=== PATIENT | male | born 1960 | race Caucasian/White ===

== ENCOUNTER → 2019-10-18 | Outpatient (CLI) | payer OTHER ==
[~2019-10-18] VITALS: Ht 180.3 cm; Wt 108.9 kg
[~2019-10-18] MED LIST: LISINOPRIL5 MG PO; MULTIVITAMINS1 EAC7 PO; PROTONIX40 M1 PO
--- NOTE | 2019-10-18 15:08 | P ---
[facility] [place] [address] PROCEDURE REPORT Name: JEREMÍAS BARRETO Room #: REG [facility]#: [id number] Admission: 10/18/19 Attend Phys: Scott Best MD Discharge: Date of : 64 Report #: [id number] THIS REPORT FOR: cc: Robert Fishman MD, Bradley MD Thesing,Scott Muniz MD ~ CC: Robert Best OUTPATIENT COLONOSCOPY REPORT BRIEF HISTORY: The patient is a 59-year-old male for average risk screening colonoscopy. PREOPERATIVE DIAGNOSIS: Average risk screening colonoscopy. POSTOPERATIVE DIAGNOSES: 1. Pclveuva-cq-bpicup diverticulosis coli, primarily left colon. 2. Small internal hemorrhoids. MEDICATIONS: Deep sedation with propofol per anesthesia. SPECIMEN: None. ESTIMATED BLOOD LOSS: None. PROCEDURE: Colonoscopy to cecum and terminal ileum. FINDINGS: Prior to propofol sedation, procedure of colonoscopy discussed with the patient as well as potential risks and its complications. He indicates he understands and desires to proceed. DESCRIPTION OF PROCEDURE: With the patient in left lateral decubitus position, digital examination was completed, which revealed no abnormalities. Subsequently, the Olympus video colonoscope was introduced into the rectum, advanced under direct vision to the cecum. Done with minimal difficulty. The cecum was identified by the ileocecal valve and the appendiceal orifice. I was able to visualize the distal segment of the terminal ileum, which was inspected and noted to be unremarkable. At that point, the scope was slowly withdrawn and careful circumferential views obtained. Upon slow withdrawal of the scope, the prep was excellent. The mucosa was within normal limits, normal vascular pattern, normal light reflex. No neoplastic or inflammatory changes were seen. An occasional diverticulum was seen in the proximal colon. There was no endoscopic evidence of diverticulitis. As the scope was withdrawn, he was found to have moderately severe diverticular disease in the sigmoid colon without endoscopic evidence of diverticulitis. Scope was withdrawn in the rectum, [address] [address] PROCEDURE REPORT Name: JEREMÍAS BARRETO Sayda Room #: REG [facility]#: [id number] Admission: 10/18/19 Attend Phys: Scott Best MD Discharge: Date of : 64 Report #: [id number] abnormalities were seen. Upon retroflexion, small hemorrhoids were seen. Scope was withdrawn. The patient tolerated the procedure well. CONDITION OF THE PATIENT UPON DISCHARGE: Following procedure, the patient drowsy, aroused, conversant and will be discharged home when fully ambulatory. INSTRUCTIONS TO THE PATIENT AND FAMILY AT THE TIME OF DISCHARGE: No neoplastic lesions were seen. He does have diverticular disease. At this point in time, I suggest to return for average risk screening colonoscopy in 10 years. Withdrawal time from the cecum was 10 minutes 8 seconds. <ELECTRONICALLY SIGNED> By: Scott Best MD 10/18/19 1508 [id number] Scott Best MD /chantelle
--- NOTE | 2019-10-19 14:59 | P ---
[facility] [place] [address] PROCEDURE REPORT Name: JEREMÍAS BARRETO Room #: REG [facility]#: [id number] Admission: 10/18/19 Attend Phys: Scott Best MD Discharge: Date of : 64 Report #: [id number] THIS REPORT FOR: cc: Robert Fishman MD, Bradley MD Thesing,Scott Muniz MD ~ CC: Robert Best OUTPATIENT UPPER ENDOSCOPY REPORT BRIEF HISTORY: The patient is a 59-year-old male with a history of Oconnor's esophagus with previous radiofrequency ablation. He was treated more than 5 years ago. He presents for surveillance upper endoscopy. PREOPERATIVE DIAGNOSIS: History of Oconnor's esophagus, status post radiofrequency ablation. POSTOPERATIVE DIAGNOSES: 1. Diffuse gastritis, previously noted. 2. A 3-4 cm sliding-type hiatus hernia. 3. Surgical changes consistent with Klever fundoplication, partially undone. 4. Gastric polyps. MEDICATIONS: Deep sedation with propofol per anesthesia. SPECIMENS: 1. Biopsy of gastric polyp, within the hiatus hernia in the cardia of the stomach. 2. Biopsy of GE junction. ESTIMATED BLOOD LOSS: 3 mL. PROCEDURE: EGD with biopsy. FINDINGS: Prior to propofol sedation, procedure of upper endoscopy was discussed with the patient as well as potential risks and its complications. He indicates he understands and desires to proceed. DESCRIPTION OF PROCEDURE: With the patient in left lateral decubitus position, the Olympus video endoscope was inserted in the cervical esophagus under direct vision without difficulty. Examination of this organ through its entire style revealed normal esophageal mucosa down the squamocolumnar junction. This area was examined with white light and narrow banded imaging. The mucosa was completely flat. No strictures or masses were seen. No raised lesions were seen. The squamocolumnar junction was in appropriate position at the top of [facility] [address] [place] [address] PROCEDURE REPORT Name: MARY LOU,JEREMÍAS J Room #: REG [facility]#: [id number] Admission: 10/18/19 Attend Phys: Scott Bset MD Discharge: Date of : 64 Report #: [id number] gastric folds. Multiple biopsies were obtained. The scope was advanced. He had a 3-4 cm sliding-type hiatus hernia. Upon retroflexion, a diminutive polyp could be seen that was within about 2 cm of the squamocolumnar junction, was essentially removed with biopsy forceps. It had a benign appearance. No other abnormalities were seen in the hiatus hernia. The scope was advanced fully into the stomach, which was examined on end view as well as retroflexed views. There were a few scattered gastric polyps, which have been previously noted. They had a smooth benign appearance in typical appearance. In addition, there was a diffuse gastritis with erythema in the antrum of the stomach, which was then previously noted as well. No ulcers or mass lesions were seen. Upon retroflexion, the hiatus hernia was seen. Also, there was evidence of Klever fundoplication, but endoscopically it appears to be involving only one half of the circumference and ____. Pylorus, duodenal bulb, and postbulbar duodenal sweep were inspected and noted to be unremarkable. At that point, the scope was slowly withdrawn and careful circumferential views confirmed the above findings. The patient tolerated the procedure well. CONDITION OF THE PATIENT UPON DISCHARGE: Following procedure, the patient drowsy. He will be discharged home when fully ambulatory. INSTRUCTIONS TO THE PATIENT AND FAMILY AT THE TIME OF DISCHARGE: We will followup on biopsies obtained today. If there was no evidence of Oconnor's, we will have him return in 3-5 years. If there is evidence of Oconnor's, we may need to consider additional treatment. He will continue his PPI at least once daily. He will otherwise followup with Dr. Robert Fishman. <ELECTRONICALLY SIGNED> By: Scott Best MD 10/19/19 1459 [id number] 0830 Scott Best MD /nt
--- NOTE | 2019-10-20 14:07 | PATH ---
[facility] [place] [address] PATHOLOGY RPT PROCEDURE Name: DEREK BARRETO Sayda Room #: REG [facility]#: [id number] Admission: 10/18/19 Date of : 64 Discharge: Report #: [id number] Path Case #: [id number] [facility] Accession Number: [id number] . 01 Material submitted: . PART A: hernia - BIOPSY OF POLYP AT HIATAL HERNIA PART B: esophagus - BIOPSY OF G-JUNCTION HX OF BARRETTS S/P RADIOFREQUENCY ABLATION . 01 Clinical history: . Pre-op diagnosis: Screening Post-op diagnosis: Diverticulitis; hemorrhoids . 02 Diagnosis: A. Gastric mucosa, polyp at hiatal hernia, endoscopic biopsy: - Gastric mucosa with mild chronic inflammation. - Negative for intestinal metaplasia or atrophy. - Negative for dysplasia or malignancy. . B. Gastroesophageal mucosa, "G junction of Oconnor's status post radiofrequency ablation", endoscopic biopsy: - Gastric-type mucosa with mild active inflammation. 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 - Negative for Oconnor's mucosa or metaplasia. . (IUV:mml; 10/20/2019) QLM 10/20/2019 1310 Local . 02 Comment: Focal goblet cell change is identified within the squamous metaplastic mucosa; however, there is no intestinal metaplasia identified within the gastric-type mucosa sampled. The provided history of Oconnor's mucosa is noted. There is no definitive Oconnor's mucosa (intestinal metaplasia/specialized columnar epithelium) or dysplasia present within the current biopsy tissue. Please correlate clinically. . (IUV:mml; 10/20/2019) . 02 Electronically signed: . Maggie Hutchins MD, Pathologist NPI- [id number] . 01 Gross description: . A. The specimen is received in formalin, labeled "Derek Barreto, biopsy of polyp at hiatal hernia". Received are three segments of pale graff soft tissue ranging in size from 0.2 to 0.5 cm in maximum dimensions. The specimen is submitted entirely in cassette A1. [address] [address] PATHOLOGY RPT PROCEDURE Name: DEREK BARRETO Room #: REG [facility]#: [id number] Admission: 10/18/19 Date of : 64 Discharge: Report #: [id number] Path Case #: [id number] . B. The specimen is received in formalin, labeled "Derek Barreto, biopsy of G-junction, history of Oconnor's, status post radiofrequency ablation". Received are seven segments of pale graff soft tissue ranging in size from 0.2 to 0.6 cm in maximum dimensions. The specimen is submitted entirely in cassette B1. (CAA; 10/19/2019) QAC/QAC 10/19/2019 1323 Local . 02 Pathologist provided ICD-10: K29.50, K20.9 . 02 CPT . 063511, 782151 Specimen Comment: A courtesy copy of this report has been sent to [phone], [phone] Specimen Comment: [id number] Specimen Comment: Report sent to / DR BARRETT Performed at: [address], [place] [id number] MD Rafael Calero MD Phone: [phone] Performed at: [address] [id number] MD Maggie Hutchins MD Phone: [phone]
== END | disposition home or self-care (01) ==
LOC: GI 06:55
DX: Z12.11 Encounter for screening for malignant neoplasm of colon (principal); K57.30 Diverticulosis of large intestine without perforation or abscess without bleeding; K64.8 Other hemorrhoids; K29.50 Unspecified chronic gastritis without bleeding; K21.0 Gastro-esophageal reflux disease with esophagitis; K31.7 Polyp of stomach and duodenum; K44.9 Diaphragmatic hernia without obstruction or gangrene; I10 Essential (primary) hypertension; Z98.890 Other specified postprocedural states; Z79.899 Other long term (current) drug therapy; Z85.46 Personal history of malignant neoplasm of prostate; Z90.49 Acquired absence of other specified parts of digestive tract
CPT/HCPCS: 62110; 62900